=== PATIENT | female | born 1990 | race American Indian/Alaskan Native ===

== ENCOUNTER 2018-10-10 11:59 | Outpatient (CLI) | payer BC | END 2018-10-10 12:00 | disposition home or self-care (01) | LOC: LAB 11:59 | PROVIDERS: ATTEND Obstetrics & Gynecology | DX: Z01.419 Encounter for gynecological examination (general) (routine) without abnormal findings (principal) | CPT/HCPCS: 36415 ==

== ENCOUNTER 2018-12-24 14:12 | Emergency (ER) | payer BC ==
[2018-12-24 14:19] VITALS: BP 131/85
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
--- NOTE | 2018-12-24 15:26 | XRay Report ---
AP AND LATERAL LUMBOSACRAL SPINE: History: Low back pain. The vertebral bodies are well mineralized and normal in alignment and vertebral height with well preserved interspace distances. The visualized portions of the posterior elements are normal. IMPRESSION: Normal study.
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
== END 2018-12-24 16:17 | disposition home or self-care (01) ==
LOC: ED 14:12 → EEVIPCON 14:12 → ED 16:17
DX: S09.90XA Unspecified injury of head, initial encounter (principal); M54.5 Low back pain; V89.2XXA Person injured in unspecified motor-vehicle accident, traffic, initial encounter; Y93.89 Activity, other specified; Y92.488 Other paved roadways as the place of occurrence of the external cause; Y99.8 Other external cause status
CPT/HCPCS: 70450; 72100; 99284